=== PATIENT | male | born 1955 | race African-American/Black ===

== ENCOUNTER → 2018-04-29 | Outpatient (CLI) | payer OTHER ==
--- NOTE | 2018-04-29 09:46 | Diagnostic Imaging Report ---
PROCEDURE:X-RAY LEFT KNEE, THREE OR MORE VIEWS COMPARISON:None. INDICATIONS:LEFT KNEE SWELLING/PAIN FINDINGS: No acute, displaced fracture or dislocation. Medial compartment joint space narrowing and marginal osteophytosis. Nonspecific suprapatellar joint effusion. Soft tissues otherwise unremarkable. CONCLUSION: Mild medial compartment degenerative joint disease with a suprapatellar joint effusion. Dictated by: Greg Dumont M.D. on 04/29/2018 at 9:50 Electronically approved by: Greg Dumont M.D. on 04/29/2018 at 9:50
== END ==
LOC: RAD 08:51
PROVIDERS: ATTEND Internal Medicine
DX: M25.562 Pain in left knee (principal)

== ENCOUNTER → 2018-08-09 | Outpatient (CLI) | payer BC ==
--- NOTE | 2018-08-12 08:34 | Diagnostic Imaging Report ---
TECHNIQUE: Magnetic resonance imaging of the LEFT KNEE was performed WITHOUT injected contrast. Motion artifact partially limits sensitivity and specificity of the exam. HISTORY: Pain, medial, 2 weeks COMPARISON: None available. FINDINGS: LIGAMENTS AND TENDONS: ACL: Intact fibers with moderate intrasubstance degeneration. PCL: Intact Collateral ligaments: Intact Iliotibial band: Unremarkable Popliteal tendon: Intact Extensor mechanism: Intact, minimal intrasubstance degeneration of the distal quadriceps tendon. JOINT: Menisci: Medial: Prominent complex tearing and attenuation, most notably the body, results in peripheral extrusion of the body remnants. Lateral: Mild complex tearing and peripheral extrusion of the body, delamination and marked intrasubstance degeneration of the anterior horn. Articular Cartilage: Medial Compartment: Full-thickness erosions of the weightbearing cartilage. Lateral Compartment: Intermediate to high-grade grade erosions to the weightbearing cartilage. Patellofemoral Compartment: Low-grade diffuse erosion of the patellar and trochlear cartilage. Joint Fluid: Large nonspecific joint effusion and synovitis. A 6.6 cm (AP) x 5.4 cm (ML) x 9.1 cm (CC) multilobulated Sierra's cyst. BONES: No focal or infiltrative bone marrow replacing abnormality. No acute fracture. Mild subchondral bone marrow edema at the periphery of the medial tibial plateau. SOFT TISSUES: Mild diffuse nonspecific soft tissue edema. IMPRESSION: 1. Medial compartment predominant tricompartmental degenerative changes, including degenerative tearing of the medial meniscus greater than the lateral meniscus. Associated reactive subchondral bone marrow edema involving the medial tibial plateau. 2. Reactive synovitis with associated large joint effusion and multilobulated Sierra's cyst. Signed by: Dr. Froylan Lynn D.O., M.M.M. on 08/12/2018 8:31 AM
== END ==
LOC: MRI 16:30
PROVIDERS: ATTEND Internal Medicine
DX: M25.562 Pain in left knee (principal)